=== PATIENT | male | born 1975 | race Caucasian/White ===

== ENCOUNTER 2021-04-02 23:33 | Inpatient (IN) | payer OTHER ==
[2021-04-03] MEDS ORDERED: SODIUM CHLORIDE 1,000 ML IV SCH (00:30)
[2021-04-03 00:33] VITALS: BMI 31.3
[2021-04-03 00:50] LABS: BASO % 0.3 % (0-2.0); EOS % 0.7 % (0-4.5); HEMATOCRIT 38.5 % (35.4-49); HEMOGLOBIN 13.8 GM/dL (11.7-16.9); LYMPH % 12.2 % (8-40); MCH 31.6 pg (25.7-33.7); MCHC 35.7 g/dl (32.0-35.9); MEAN CELL VOLUME 88.5 fl (80-96); MEAN PLT VOLUME 6.5 fl (7.5-11.1); MONO % 9.4 % (3.8-10.2); NEUT % 77.4 % (42.8-82.8); PLATELET COUNT 252 10^3/uL (134-434); RBC 4.35 M/mm3 (4.00-5.60); RDW 13.4 % (11.9-15.9)
[2021-04-03 00:57] LABS: PROTHROMBIN TIME (PATIENT) 55.2 SEC (9.7-13.0)
[2021-04-03 01:00] LABS: ACTIVATED PTT 70.7 SECONDS (25.2-36.5)
[2021-04-03 01:35] LABS: ALBUMIN 3.9 g/dl (3.4-5.0); BLOOD UREA NITROGEN 7.1 mg/dL (7-18); CO2 23 mmol/L (21-32)
[2021-04-03 01:36] LABS: GLUCOSE,RANDOM 118 mg/dL (74-106)
[2021-04-03 01:38] LABS: SGOT/AST 19 U/L (15-37); SGPT/ALT 27 U/L (13-61)
[2021-04-03 01:40] LABS: BILIRUBIN,TOTAL 0.7 mg/dL (0.2-1); CREATININE 0.6 mg/dL (0.55-1.3); TOT PROT 7.3 g/dl (6.4-8.2)
[2021-04-03 01:41] LABS: ALK PHOS 82 U/L (45-117); INR 4.77 (0.83-1.09)
[2021-04-03] MEDS ORDERED: MIDAZOLAM HCL 2 MG/2 ML SINGLE DOSE VIAL IVPUSH ONE (01:47)
[2021-04-03 01:52] LABS: ANION GAP 11 MMOL/L (8-16); CHLORIDE 87 mmol/L (98-107); CHOLESTEROL 163 mg/dL (50-200); HDL CHOLESTEROL 48 mg/dL (40-60); LDL CHOLESTEROL (ONLY SJRH) 93 mg/dL (5-100); LIPASE 486 U/L (73-393); SODIUM 120 mmol/L (136-145); TRIGLYCERIDES 75 mg/dL (0-150)
[2021-04-03 02:17] LABS: PH,URINE 7.5 (5.0-8.0); URINE APPEARANCE CLEAR; URINE BILIRUBIN NEGATIVE (NEGATIVE); URINE COLOR YELLOW; URINE GLUCOSE (UA) NEGATIVE (NEGATIVE); URINE KETONE NEGATIVE (NEGATIVE); URINE LEUK ESTERASE NEGATIVE (NEGATIVE); URINE NITRITE NEGATIVE (NEGATIVE); URINE PROTEIN NEGATIVE (NEGATIVE); URINE UROBILINOGEN 0.2 mg/dL (0.2-1.0)
[2021-04-03 02:23] LABS: COCAINE, UR NEGATIVE (NEGATIVE); METHADONE, UR NEGATIVE (NEGATIVE); OPIATES, URI NEGATIVE (NEGATIVE); PHENCYCLIDINE,URINE NEGATIVE (NEGATIVE); URINE BARBITURATES NEGATIVE (NEGATIVE); URINE BENZODIAZEPINES NEGATIVE (NEGATIVE)
[2021-04-03 02:25] LABS: URINE AMPHETAMINES NEGATIVE (NEGATIVE)
[2021-04-03] MEDS ORDERED: HALOPERIDOL LACTATE 5 MG/ML ONE (03:37)
[2021-04-03] MEDS ORDERED: LORazepam 2 MG/ML SDV VIAL ONE (03:41)
[2021-04-03] MEDS ORDERED: SODIUM CHLORIDE 3% 500 ML/500 ML INFUS.BAG IV ONE ×2 (03:42→12:15)
[2021-04-03] MEDS ORDERED: HALOPERIDOL DECANOATE 500 MG/5ML MDV IM STA (03:47)
[2021-04-03] MEDS ORDERED: LORazepam 2 MG/ML SDV VIAL IVPUSH STA (03:50)
[2021-04-03 05:31] LABS: CREATININE, URINE RANDOM < 13.0 mg/dL (30-150)
[2021-04-03 05:52] LABS: OSMOLALITY,SERUM 245 mosm/kg (278-305)
[2021-04-03] MEDS: INSULIN SLIDING SCALE (NOVOLOG) 1 VIAL SQ SCH ×4 (08:39→22:26)
[2021-04-03 09:57] LABS: BASO % 0.2 % (0-2.0); EOS % 0.4 % (0-4.5); HEMATOCRIT 43.9 % (35.4-49); HEMOGLOBIN 15.5 GM/dL (11.7-16.9); LYMPH % 15.1 % (8-40); MCH 31.6 pg (25.7-33.7); MCHC 35.2 g/dl (32.0-35.9); MEAN CELL VOLUME 89.7 fl (80-96); MEAN PLT VOLUME 6.9 fl (7.5-11.1); NEUT % 69.3 % (42.8-82.8); PLATELET COUNT 263 10^3/uL (134-434); RDW 13.6 % (11.9-15.9); WHITE BLOOD COUNT 12.9 K/mm3 (4.0-10.0)
[2021-04-03 10:18] LABS: CALCIUM 9.9 mg/dL (8.5-10.1)
[2021-04-03 10:20] LABS: ALBUMIN 4.4 g/dl (3.4-5.0); MAGNESIUM 2.1 mg/dL (1.8-2.4)
[2021-04-03 10:22] LABS: CREATININE 0.6 mg/dL (0.55-1.3); PHOSPHOROUS 3.7 mg/dL (2.5-4.9)
[2021-04-03 10:23] LABS: BILIRUBIN,TOTAL 0.7 mg/dL (0.2-1)
[2021-04-03 13:31] LABS: INR 3.36 (0.83-1.09); PROTHROMBIN TIME (PATIENT) 39.9 SEC (9.7-13.0)
[2021-04-03 13:33] LABS: ACTIVATED PTT 56.5 SECONDS (25.2-36.5)
[2021-04-03 13:47] LABS: CALCIUM 9.2 mg/dL (8.5-10.1)
[2021-04-03 13:52] LABS: CREATININE 0.8 mg/dL (0.55-1.3)
[2021-04-03] MEDS ORDERED: DESMOPRESSIN ACETATE 4 MCG/ML AMP IVPB ONE (14:12)
[2021-04-03] MEDS ORDERED: DEXTROSE 5%-WATER - 1,000 ML IV SCH (14:15)
[2021-04-03] MEDS: MUPIROCIN 2% TOPICAL OINTMENT FOR DECOLONIZATION NS SCH ×2 (14:38→22:26)
[2021-04-03] MEDS ORDERED: PT OWN MED DRAWER 7, Y5N ONE (15:31)
[2021-04-03] MEDS: RIVAROXABAN 20 MG TABLET PO SCH (18:05)
[2021-04-03 18:26] LABS: BLOOD UREA NITROGEN 9.4 mg/dL (7-18); CALCIUM 9.4 mg/dL (8.5-10.1); CREATININE 0.8 mg/dL (0.55-1.3)
[2021-04-03 21:18] LABS: CALCIUM 9.5 mg/dL (8.5-10.1)
[2021-04-03 21:19] LABS: BLOOD UREA NITROGEN 11.6 mg/dL (7-18)
[2021-04-03 21:22] LABS: CREATININE 0.9 mg/dL (0.55-1.3)
[2021-04-03] MEDS: CHLORHEXIDINE GLUCONATE 4% CLEANSER FOR DECOLONIZATION TP SCH (22:26)
[2021-04-04 02:21] LABS: CALCIUM 8.7 mg/dL (8.5-10.1)
[2021-04-04 02:23] LABS: BLOOD UREA NITROGEN 11.9 mg/dL (7-18)
[2021-04-04 02:25] LABS: CREATININE 0.7 mg/dL (0.55-1.3)
[2021-04-04] MEDS ORDERED: LEVOTHYROXINE NA 50 MCG TABLET (FP) PO SCH (07:00)
[2021-04-04 07:08] LABS: EOS % 0.7 % (0-4.5); HEMATOCRIT 40.4 % (35.4-49); LYMPH % 19.4 % (8-40); MCH 31.4 pg (25.7-33.7); MCHC 34.7 g/dl (32.0-35.9); MEAN CELL VOLUME 90.3 fl (80-96); MEAN PLT VOLUME 7.6 fl (7.5-11.1); MONO % 9.5 % (3.8-10.2); NEUT % 69.4 % (42.8-82.8); PLATELET COUNT 237 10^3/uL (134-434); RBC 4.47 M/mm3 (4.00-5.60); RDW 13.2 % (11.9-15.9); WHITE BLOOD COUNT 8.5 K/mm3 (4.0-10.0)
[2021-04-04] MEDS: INSULIN SLIDING SCALE (NOVOLOG) 1 VIAL SQ SCH ×4 (08:00→21:49)
[2021-04-04 08:05] LABS: CALCIUM 8.9 mg/dL (8.5-10.1)
[2021-04-04 08:06] LABS: BLOOD UREA NITROGEN 11.6 mg/dL (7-18)
[2021-04-04 08:09] LABS: CREATININE 0.8 mg/dL (0.55-1.3)
[2021-04-04 08:28] LABS: URINE APPEARANCE CLEAR; URINE BILIRUBIN NEGATIVE (NEGATIVE); URINE COLOR YELLOW; URINE GLUCOSE (UA) NEGATIVE (NEGATIVE); URINE KETONE NEGATIVE (NEGATIVE); URINE LEUK ESTERASE NEGATIVE (NEGATIVE); URINE NITRITE NEGATIVE (NEGATIVE); URINE PROTEIN NEGATIVE (NEGATIVE); URINE UROBILINOGEN 0.2 mg/dL (0.2-1.0)
[2021-04-04] MEDS ORDERED: SODIUM CHLORIDE 1,000 ML IV SCH (09:30)
[2021-04-04] MEDS: MUPIROCIN 2% TOPICAL OINTMENT FOR DECOLONIZATION NS SCH ×2 (09:42→21:49)
[2021-04-04] MEDS: LEVOTHYROXINE NA 50 MCG TABLET (FP) PO SCH (09:42)
[2021-04-04] MEDS: amLODIPine BESYLATE 5 MG TABLET (FP) PO SCH (09:42)
[2021-04-04] MEDS ORDERED: INSULIN (NOVOLOG) ASPART 100 UNITS/ML 10ML VIAL ONE (12:40)
[2021-04-04 17:25] LABS: BLOOD UREA NITROGEN 13.4 mg/dL (7-18); CALCIUM 9.2 mg/dL (8.5-10.1)
[2021-04-04 17:29] LABS: CREATININE 0.8 mg/dL (0.55-1.3)
[2021-04-04] MEDS: RIVAROXABAN 20 MG TABLET PO SCH (17:44)
[2021-04-04] MEDS: SODIUM CHLORIDE 1,000 ML IV SCH (17:45)
[2021-04-04] MEDS: CHLORHEXIDINE GLUCONATE 4% CLEANSER FOR DECOLONIZATION TP SCH (21:35)
[2021-04-05 02:05] LABS: BLOOD UREA NITROGEN 12.6 mg/dL (7-18); CALCIUM 9.3 mg/dL (8.5-10.1); CREATININE 0.7 mg/dL (0.55-1.3)
[2021-04-05] MEDS: LEVOTHYROXINE NA 50 MCG TABLET (FP) PO SCH (06:00)
[2021-04-05 06:35] LABS: BASO % 0.7 % (0-2.0); EOS % 0.6 % (0-4.5); HEMATOCRIT 40.9 % (35.4-49); HEMOGLOBIN 13.8 GM/dL (11.7-16.9); LYMPH % 32.5 % (8-40); MCH 31.1 pg (25.7-33.7); MCHC 33.8 g/dl (32.0-35.9); MEAN PLT VOLUME 7.3 fl (7.5-11.1); MONO % 10.3 % (3.8-10.2); NEUT % 55.9 % (42.8-82.8); PLATELET COUNT 251 10^3/uL (134-434); RBC 4.44 M/mm3 (4.00-5.60); RDW 13.6 % (11.9-15.9); WHITE BLOOD COUNT 8.5 K/mm3 (4.0-10.0)
[2021-04-05] MEDS: INSULIN SLIDING SCALE (NOVOLOG) 1 VIAL SQ SCH ×4 (06:56→21:52)
[2021-04-05 07:01] LABS: BLOOD UREA NITROGEN 12.6 mg/dL (7-18); CALCIUM 9.5 mg/dL (8.5-10.1); MAGNESIUM 1.9 mg/dL (1.8-2.4)
[2021-04-05 07:05] LABS: CREATININE 0.8 mg/dL (0.55-1.3)
[2021-04-05 07:06] LABS: BILIRUBIN,TOTAL 1.1 mg/dL (0.2-1)
[2021-04-05 07:08] LABS: TOT PROT 7.2 g/dl (6.4-8.2)
[2021-04-05] MEDS: amLODIPine BESYLATE 5 MG TABLET (FP) PO SCH (09:34)
[2021-04-05] MEDS: MUPIROCIN 2% TOPICAL OINTMENT FOR DECOLONIZATION NS SCH ×2 (09:35→21:51)
[2021-04-05] MEDS: RIVAROXABAN 20 MG TABLET PO SCH (17:56)
[2021-04-05] MEDS: SODIUM CHLORIDE 1,000 ML IV SCH (17:57)
[2021-04-05] MEDS: CHLORHEXIDINE GLUCONATE 4% CLEANSER FOR DECOLONIZATION TP SCH (21:51)
[2021-04-06] MEDS: LEVOTHYROXINE NA 50 MCG TABLET (FP) PO SCH (05:59)
[2021-04-06 06:53] LABS: HEMATOCRIT 39.1 % (35.4-49); HEMOGLOBIN 13.7 GM/dL (11.7-16.9); MCH 31.9 pg (25.7-33.7); MCHC 35.2 g/dl (32.0-35.9); MEAN CELL VOLUME 90.8 fl (80-96); MEAN PLT VOLUME 7.4 fl (7.5-11.1); PLATELET COUNT 242 10^3/uL (134-434); RDW 13.7 % (11.9-15.9); WHITE BLOOD COUNT 9.8 K/mm3 (4.0-10.0)
[2021-04-06 07:08] LABS: MAGNESIUM 1.9 mg/dL (1.8-2.4)
[2021-04-06 07:10] LABS: CALCIUM 9.5 mg/dL (8.5-10.1); CREATININE 0.7 mg/dL (0.55-1.3)
[2021-04-06 07:11] LABS: PHOSPHOROUS 3.9 mg/dL (2.5-4.9)
[2021-04-06 07:13] LABS: BLOOD UREA NITROGEN 12.7 mg/dL (7-18)
[2021-04-06] MEDS ORDERED: PT OWN MED DRAWER 7, Y5N ONE (08:44)
[2021-04-06] MEDS: INSULIN SLIDING SCALE (NOVOLOG) 1 VIAL SQ SCH ×4 (08:55→21:11)
[2021-04-06] MEDS: amLODIPine BESYLATE 5 MG TABLET (FP) PO SCH (09:16)
[2021-04-06] MEDS: MUPIROCIN 2% TOPICAL OINTMENT FOR DECOLONIZATION NS SCH (11:56)
[2021-04-06 15:24] LABS: BLOOD UREA NITROGEN 11.7 mg/dL (7-18); CALCIUM 9.6 mg/dL (8.5-10.1)
[2021-04-06 15:28] LABS: CREATININE 0.7 mg/dL (0.55-1.3)
[2021-04-06] MEDS: SODIUM CHLORIDE 1 GM TABLET PO SCH (17:06)
[2021-04-06] MEDS: RIVAROXABAN 20 MG TABLET PO SCH (17:06)
[2021-04-06] MEDS: HALOPERIDOL 5 MG TABLET PO SCH (21:11)
[2021-04-06] MEDS: BENZTROPINE MESYLATE 0.5 MG TABLET (FP) PO SCH (21:11)
[2021-04-07] MEDS: LEVOTHYROXINE NA 50 MCG TABLET (FP) PO SCH (06:39)
[2021-04-07] MEDS: INSULIN SLIDING SCALE (NOVOLOG) 1 VIAL SQ SCH ×4 (06:40→21:05)
[2021-04-07 08:25] LABS: EOS % 1.5 % (0-4.5); HEMATOCRIT 38.7 % (35.4-49); HEMOGLOBIN 13.5 GM/dL (11.7-16.9); LYMPH % 28.3 % (8-40); MCH 31.7 pg (25.7-33.7); MCHC 34.8 g/dl (32.0-35.9); MEAN CELL VOLUME 90.9 fl (80-96); MEAN PLT VOLUME 7.6 fl (7.5-11.1); MONO % 9.6 % (3.8-10.2); NEUT % 59.6 % (42.8-82.8); PLATELET COUNT 237 10^3/uL (134-434); RBC 4.26 M/mm3 (4.00-5.60); RDW 13.6 % (11.9-15.9); WHITE BLOOD COUNT 8.7 K/mm3 (4.0-10.0)
[2021-04-07 08:45] LABS: BLOOD UREA NITROGEN 12.1 mg/dL (7-18); CALCIUM 9.4 mg/dL (8.5-10.1)
[2021-04-07 08:46] LABS: MAGNESIUM 1.8 mg/dL (1.8-2.4)
[2021-04-07 08:49] LABS: CREATININE 0.8 mg/dL (0.55-1.3); PHOSPHOROUS 4.1 mg/dL (2.5-4.9)
[2021-04-07 08:50] LABS: BILIRUBIN,TOTAL 0.9 mg/dL (0.2-1); TOT PROT 7.4 g/dl (6.4-8.2)
[2021-04-07] MEDS: SODIUM CHLORIDE 1 GM TABLET PO SCH ×2 (10:12→21:04)
[2021-04-07] MEDS ORDERED: PT OWN MED DRAWER 7, Y5N ONE (10:12)
[2021-04-07] MEDS: amLODIPine BESYLATE 5 MG TABLET (FP) PO SCH (10:12)
[2021-04-07] MEDS: RIVAROXABAN 20 MG TABLET PO SCH (17:56)
[2021-04-07] MEDS ORDERED: INSULIN (NOVOLOG) ASPART 100 UNITS/ML 10ML VIAL ONE (20:40)
[2021-04-07] MEDS: HALOPERIDOL 5 MG TABLET PO SCH (21:04)
[2021-04-07] MEDS: BENZTROPINE MESYLATE 0.5 MG TABLET (FP) PO SCH (21:05)
[2021-04-08] MEDS: INSULIN SLIDING SCALE (NOVOLOG) 1 VIAL SQ SCH ×4 (06:14→21:14)
[2021-04-08] MEDS: LEVOTHYROXINE NA 50 MCG TABLET (FP) PO SCH (06:14)
[2021-04-08 08:13] LABS: BLOOD UREA NITROGEN 10.6 mg/dL (7-18); MAGNESIUM 1.9 mg/dL (1.8-2.4)
[2021-04-08 08:15] LABS: CALCIUM 9.3 mg/dL (8.5-10.1)
[2021-04-08 08:16] LABS: CREATININE 0.7 mg/dL (0.55-1.3)
[2021-04-08] MEDS: amLODIPine BESYLATE 5 MG TABLET (FP) PO SCH (09:27)
[2021-04-08] MEDS: SODIUM CHLORIDE 1 GM TABLET PO SCH ×2 (09:27→21:14)
[2021-04-08 10:10] LABS: SARS-CoV-2 NAA Not Detected (Not Detected)
[2021-04-08] MEDS: RIVAROXABAN 20 MG TABLET PO SCH (16:59)
[2021-04-08] MEDS ORDERED: PT OWN MED DRAWER 7, Y5N ONE (21:05)
[2021-04-08] MEDS ORDERED: INSULIN (NOVOLOG) ASPART 100 UNITS/ML 10ML VIAL ONE (21:06)
[2021-04-08] MEDS: HALOPERIDOL 5 MG TABLET PO SCH (21:14)
[2021-04-08] MEDS: BENZTROPINE MESYLATE 0.5 MG TABLET (FP) PO SCH (21:14)
[2021-04-09] MEDS: LEVOTHYROXINE NA 50 MCG TABLET (FP) PO SCH (06:59)
[2021-04-09] MEDS: INSULIN SLIDING SCALE (NOVOLOG) 1 VIAL SQ SCH ×2 (07:01→10:59)
[2021-04-09 07:43] LABS: CALCIUM 9.3 mg/dL (8.5-10.1)
[2021-04-09 07:47] LABS: CREATININE 0.7 mg/dL (0.55-1.3)
[2021-04-09] MEDS ORDERED: INSULIN (LEVEMIR) 100 UNITS/ML UNITS SQ ONE (09:47)
[2021-04-09] MEDS ORDERED: PT OWN MED DRAWER 7, Y5N ONE (10:01)
[2021-04-09] MEDS: amLODIPine BESYLATE 5 MG TABLET (FP) PO SCH (10:09)
[2021-04-09] MEDS: SODIUM CHLORIDE 1 GM TABLET PO SCH (10:09)
[2021-04-09 13:22] VITALS: BP 137/68; PULSE 66; TEMP 98.2
== END 2021-04-09 15:23 | DRG 917 ==
LOC: JER 23:33 → JERBED 04-03 04:05 → JICU 04-03 06:35 → J7W 04-06 12:57
PROVIDERS: ADMIT Internal Medicine Pulmonary Disease; ATTEND Internal Medicine
DX: T42.6X2A Poisoning by other antiepileptic and sedative-hypnotic drugs, intentional self-harm, initial encounter (principal); G92 Toxic encephalopathy; E22.2 Syndrome of inappropriate secretion of antidiuretic hormone; E03.9 Hypothyroidism, unspecified; E11.9 Type 2 diabetes mellitus without complications; F20.9 Schizophrenia, unspecified; I10 Essential (primary) hypertension; I69.341 Monoplegia of lower limb following cerebral infarction affecting right dominant side; F32.9 Major depressive disorder, single episode, unspecified; T43.592A Poisoning by other antipsychotics and neuroleptics, intentional self-harm, initial encounter; Y92.009 Unspecified place in unspecified non-institutional (private) residence as the place of occurrence of the external cause; F43.20 Adjustment disorder, unspecified
CPT/HCPCS: 36415; 70450-TC; 71045-TC-FY; 80048; 80053; 80061; 80164; 80307; 81003; 82533; 82550; 82570; 82947; 82962; 83690; 83721; 83735; 83930; 83935; 84100; 84300; 84439; 84443; 84484; 85025; 85027; 85610; 85730; 86850; 86900; 86901; 87086; 93005; 93010; 97116-GP; 97161-GP; 99285-25; C9803; J2597; U0003; U0005